=== PATIENT | female | born 1945 | race Caucasian/White ===

== ENCOUNTER 2017-04-10 15:00 | Inpatient (IN) | payer MEDICARE ==
[2017-04-22] MEDS ORDERED: MECLIZINE 25 MG TABLET PO ONE (06:00)
[2017-04-22] MEDS ORDERED: FAMOTIDINE 20MG TABLET PO ONE (06:00)
[2017-04-22] MEDS ORDERED: CELECOXIB 100 MG CAPSULE PO ONE (06:00)
[2017-04-22] MEDS ORDERED: METOCLOPRAMIDE 10 MG TABLET PO ONE (06:00)
[2017-04-22] MEDS ORDERED: VANCOMYCIN HCL 1,000 MG in 0.9 % SODIUM CHLORIDE 250ML 250 ML IVPB ONE (06:00)
[2017-04-22] MEDS ORDERED: CEFAZOLIN 2 Gram 2 GM/50 ML BAG IVPB ONE (06:00)
[2017-04-22 07:50] LABS: ABO GROUP A; RH TYPE POSITIVE
[2017-04-22 07:52] LABS: ANTIBODY SCREEN NEGATIVE (NEGATIVE)
[2017-04-22] MEDS ORDERED: 0.9 % SODIUM CHLORIDE 10 ML VIAL IVP ONE (09:00)
[2017-04-22] MEDS ORDERED: TRANEXAMIC ACID 1,000 MG/10 ML ML IV ONE ×2 (09:00→12:45)
[2017-04-22] MEDS ORDERED: ZOLPIDEM TARTRATE 5 MG TABLET PO PRN (11:14)
[2017-04-22] MEDS ORDERED: BISACODYL 10 MG SUPP RC PRN (11:14)
[2017-04-22] MEDS ORDERED: HYDROMORPHONE HCL 1MG/ML **SYRINGE IM PRN (11:14)
[2017-04-22] MEDS ORDERED: ONDANSETRON HCL IV 4 MG/2 ML VIAL IVP PRN (11:14)
[2017-04-22] MEDS ORDERED: HYDROCODONE/APAP 10/325 TABLET PO PRN ×2 (11:14)
[2017-04-22] MEDS ORDERED: TRAMADOL HCL 50 MG TABLET PO PRN (11:14)
[2017-04-22] MEDS ORDERED: NALOXONE 0.4 MG/1 ML VIAL IVP PRN (11:14)
[2017-04-22] MEDS ORDERED: AL HYDROX/MAG HYDROX 30ML UD PO PRN (11:14)
[2017-04-22] MEDS ORDERED: ACETAMINOPHEN W/ CODEINE 300MG/60MG TABLET PO PRN ×2 (11:14)
[2017-04-22] MEDS ORDERED: DIPHENHYDRAMINE HCL 25 MG CAPSULE PO PRN (11:14)
[2017-04-22] MEDS ORDERED: ACETAMINOPHEN 325 MG TAB PO PRN (11:14)
[2017-04-22] MEDS ORDERED: HYDROMORPHONE HCL 2 MG/ML VIAL IM PRN (11:14)
[2017-04-22] MEDS ORDERED: MAGNESIUM HYDROXIDE 30 ML UDC PO PRN (11:14)
[2017-04-22] MEDS ORDERED: KETOROLAC 30 MG/ML VIAL IVP PRN ×2 (11:14)
[2017-04-22] MEDS: POTASSIUM CHLORIDE/D5-0.9%NACL 20 MEQ/1,000 ML BAG IV SCH ×2 (11:58→21:07)
[2017-04-22] MEDS ORDERED: BUPIVACAINE 0.5% W/EPI MPF 30 ML VIAL IVP ONE (12:45)
[2017-04-22] MEDS ORDERED: FENTANYL PF 100MCG/2ML VIAL IV ONE (14:00)
[2017-04-22] MEDS ORDERED: HYDROMORPHONE HCL 2 MG/ML VIAL IV ONE (14:00)
[2017-04-22] MEDS ORDERED: *PACU ONLY* KETAMINE HCL 10 MG/ML (20ML) VIAL IV ONE (14:00)
[2017-04-22] MEDS ORDERED: PROPOFOL 10 MG/ML VIAL IV ONE (14:00)
[2017-04-22] MEDS ORDERED: MIDAZOLAM HCL 2MG/2ML VIAL IV ONE (14:00)
[2017-04-22] MEDS ORDERED: KETOROLAC 30 MG/ML VIAL IVP ONE (14:00)
[2017-04-22] MEDS: CEFAZOLIN 2 Gram 2 GM/50 ML BAG IVPB SCH (16:03)
--- NOTE | 2017-04-22 16:09 | Rehab Evaluation ---
Patient Information - Patient Information Diagnosis: R DJD Ordered Treatment: PT Evaluate and Treat Status: Initial Evaluation Surgery: Yes Date of Surgery: 04/22/17 Past Medical/Surgical Hx: PAST MEDICAL/SURGICAL HISTORY Past Surgical History rt breast lumpectomy with lymph nodes removed 25 yrs ago; colonoscopy; total thyroidectomy 2013. PMH - Respiratory Hx Respiratory Disorders Yes Hx Asthma Yes: as child Hx Sleep Apnea Yes Hx of CPAP Yes Hx of Oxygen Therapy No PMH - Cardiovascular Hx Cardiovascular Disorders Yes Hx Edema Yes: none now-but has some edema when knee " acting up" Hx Hypertension Yes: meds good control Hx Irregular Heartbeat Yes: A-fib for past 3-4 yrs Hx Vascular Disease Yes: "leaky valve"-heart Exercise Tolerance Good Comment: uses stationary bike Qd PMH - Neuro Hx Neurological Disorders No PMH - GI Hx Gastrointestinal Disorders Yes Hx Weight Loss/Weight Gain Yes: 15-20# over last 4 yrs PMH - Hx Genitourinary Disorders No PMH - Endocrine Hx Endocrine Disorders Yes Hx Thyroid Disease Yes: removed thyroid PMH - Musculoskeletal Hx Musculoskeletal Disorders Yes Hx Arthritis Yes: bilat knees PMH - Psych Hx Psychiatric Problems No PMH - Hematology/Oncology Hx Hematology/Oncology Yes Disorders Hx Cancer Yes: rt breast only Hx Chemotherapy Yes Hx Radiation Therapy Yes Comment: on blood thinner for A-FIB Premorbid Status: Detail (The patient was ambulatory without device.) Social History: Detail (The patient lives in a one story home with spouse with 5 steps and 2 railings. The patient has a tub/shower combination with a tub seat and a hand held shower and a regular toilet seat. No grab bars are present in the bathroom. The patient reports the laundry is in the basement but her will be assisting with laundry. The patient was completing all houlsehold tasks independently. The patient has a walker with wheels and a tub bench.) Precautions: [place], Other (WBAT on the R LE.) - Time With Patient Total Time Spent With Patient (Min): 30 Treatment Procedures: Detail (PT Initial Evaluation and gait training.) Subjective Information - Subjective Information Per Patient (The patient had no pain complaints.) Objective Data - Mental Status Patient Orientation: Oriented x3 - Visual Perception Appears within normal limits for therapeutic activities - ROM Not within normal limits (The patient's L LE AROM was WNL. The patient's R hip and ankle AROM was WNL. The patient's knee AROM was deferred secondary to status post surgery.) - Strength/Tone Not within normal limits (The patient's UE strength was generally 4+ to 5/5. The patient's L LE strength was generally 4+/5. The patient's R LE was not tested secondary status post surgery . Patient's R LE strength was functional ie : the patient was able to acheive a SLR.) - Bed Mobility Independent (The patient was independent with supine to and from sit transfer anc scooting up in bed.) - Transfers Independent (The patient was independent with sit to and from stand transfer.) - Balance Balance Sitting: Good Balance Standing: Good - Gait Detail (The patient ambulated with a wheeled walker supervision for safety only WBAT on the R LE a distance of 22 feet x 1.) Therapy Assessment - Therapy Assessment Detail (The patient was independent with bed mobility ,transfers and ambulated with supervision for safety only. Feel the patient will progress well with mobility.) Problem List - Problem List Physical Therapy Problem List: Detail (1) Decreased R knee ROM and R LE Strength following surgery 2) Limited ambulation distance and nonambulatory on stairs.) Goals - Goals Physical Therapy Goals: 1) The patient will be independent with ambulation with wheeled walker community distances on levels and stairs. 2)The patient will be independent with HEP. 3) The patient will be independent with all transfers. Prognosis - Prognosis Good Plan - Plan Physical Therapy Plan: PT 1 to 2 times a day until inpatient PT goals have been met.
[2017-04-22] MEDS: CARVEDILOL 25 MG PO SCH (16:36)
[2017-04-22] MEDS: DOCUSATE SODIUM 100 MG CAPSULE PO SCH (21:06)
[2017-04-22] MEDS ORDERED: PATIENT OWN MED: PRAVASTATIN 40 MG PO SCH (22:00)
[2017-04-23] MEDS: CEFAZOLIN 2 Gram 2 GM/50 ML BAG IVPB SCH ×2 (01:41→12:06)
[2017-04-23 06:40] LABS: HEMATOCRIT 36.8 % (35.0-47.0); HEMOGLOBIN 12.2 gm/dl (11.6-16.0)
[2017-04-23 06:52] LABS: ANION GAP 3.7 (7-16); BLOOD UREA NITROGEN 11 mg/dL (7-17); CARBON DIOXIDE 25.3 mmol/L (22-30); CREATININE 0.8 mg/dL (0.52-1.04); EST GLOMERULAR FILTRATION RATE > 60 ml/min; GLUCOSE,RANDOM 139 mg/dL (70-110)
[2017-04-23] MEDS ORDERED: LEVOTHYROXINE 112 MCG PO SCH (07:00)
[2017-04-23] MEDS: POTASSIUM CHLORIDE/D5-0.9%NACL 20 MEQ/1,000 ML BAG IV SCH ×2 (07:39→12:06)
[2017-04-23] MEDS: CARVEDILOL 25 MG PO SCH (08:10)
[2017-04-23] MEDS: PATIENT OWN MED: LISINOPRIL 10 MG PO SCH (08:11)
[2017-04-23] MEDS ORDERED: FERROUS SULFATE 325 MG TAB PO SCH (10:00)
--- NOTE | 2017-04-23 10:11 | Physical Therapy Tx Note ---
Physical Therapy Tx Note - Treatment Note Tolerated: Good Total Time Spent With Patient: 40 Physical Therapy Tx Note: Detail (Pt is Independent with HEP ,BED MOBILITY , TRANSFERS, AMBULATION LEVEL SURFACES AND STAIRS. ALL GOALS MET. Pt IS READY FOR D/C.) Physical Therapy Problem List: Detail (1) Decreased R knee ROM and R LE Strength following surgery 2) Limited ambulation distance and nonambulatory on stairs.) Physical Therapy Goals: 1) The patient will be independent with ambulation with wheeled walker community distances on levels and stairs. 2)The patient will be independent with HEP. 3) The patient will be independent with all transfers. Prognosis: Good (All goals met.) Physical Therapy Plan: PT 1 to 2 times a day until inpatient PT goals have been met.
[2017-04-23] MEDS: DOCUSATE SODIUM 100 MG CAPSULE PO SCH (11:05)
--- NOTE | 2017-04-23 11:12 | Rehab Evaluation ---
Patient Information - Patient Information Diagnosis: R total knee arthroplasty Ordered Treatment: OT Evaluate and Treat Status: Initial Evaluation Surgery: Yes (Right TKA) Date of Surgery: 04/22/17 Past Medical/Surgical Hx: PAST MEDICAL/SURGICAL HISTORY Past Surgical History rt breast lumpectomy with lymph nodes removed 25 yrs ago; colonoscopy; total thyroidectomy 2013. PMH - Respiratory Hx Respiratory Disorders Yes Hx Asthma Yes: as child Hx Sleep Apnea Yes Hx of CPAP Yes Hx of Oxygen Therapy No PMH - Cardiovascular Hx Cardiovascular Disorders Yes Hx Edema Yes: none now-but has some edema when knee " acting up" Hx Hypertension Yes: meds good control Hx Irregular Heartbeat Yes: A-fib for past 3-4 yrs Hx Vascular Disease Yes: "leaky valve"-heart Exercise Tolerance Good Comment: uses stationary bike Qd PMH - Neuro Hx Neurological Disorders No PMH - GI Hx Gastrointestinal Disorders Yes Hx Weight Loss/Weight Gain Yes: 15-20# over last 4 yrs PMH - Hx Genitourinary Disorders No PMH - Endocrine Hx Endocrine Disorders Yes Hx Thyroid Disease Yes: removed thyroid PMH - Musculoskeletal Hx Musculoskeletal Disorders Yes Hx Arthritis Yes: bilat knees PMH - Psych Hx Psychiatric Problems No PMH - Hematology/Oncology Hx Hematology/Oncology Yes Disorders Hx Cancer Yes: rt breast only Hx Chemotherapy Yes Hx Radiation Therapy Yes Comment: on blood thinner for A-FIB Premorbid Status: Detail (The patient lives with spouse in a 1 story house with 5 steps and handrailing at the entrance. She has a tub/shower combination with a bench and hand held shower as well as a standard height toilet, no grab bars. She was Ind with all self cares, meal prep, laundry, home mgmt and gardening. She has a 2 wheeled walker and a shower bench. The patient was ambulatory without device.) Social History: Detail (Pt has a supportive spouse.) Precautions: [place], Other (WBAT on the R LE.) - Time With Patient Total Time Spent With Patient (Min): 35 Treatment Procedures: Detail (OT eval low complexity) Subjective Information - Subjective Information Per Patient Objective Data - Pain Pain Present: Yes (2-3/10 right knee pain) - Mental Status Patient Orientation: Oriented x3 - Visual Perception Appears within normal limits for therapeutic activities - ROM Within normal limits (Raudel UE AROM WNL) - Strength/Tone Within normal limits (Raudel UE strength WNL) - Coordination Appears within normal limits for therapeutic activities - Bed Mobility Independent (Ind with supine to sit.) - Transfers Independent (Ind with sit to stand from EOB.) - Balance Balance Sitting: Good Balance Standing: Good - Sensation Intact - Gait Detail (Pt able to amb in room with 2 wheeled walker Indly.) - ADL's/IADL's Detail (Reviewed modified dressing techniques and shower safety. Pt able to demonstrate Ind with doffing gown and slippers and donning bra, shirt, shorts and slip on shoes using modified dressing technique.) Therapy Assessment - Therapy Assessment Detail (Pt is safe and Ind with LE dressing using modified dressing technique.) Problem List - Problem List Physical Therapy Problem List: Detail (1) Decreased R knee ROM and R LE Strength following surgery 2) Limited ambulation distance and nonambulatory on stairs.) Occupational Therapy Problem List: Detail (No current OT problems identified.) Goals - Goals Physical Therapy Goals: 1) The patient will be independent with ambulation with wheeled walker community distances on levels and stairs. 2)The patient will be independent with HEP. 3) The patient will be independent with all transfers. Occupational Therapy Goals: No current OT goals identified. Prognosis - Prognosis Good Plan - Plan Physical Therapy Plan: PT 1 to 2 times a day until inpatient PT goals have been met. Occupational Therapy Plan: No further IP OT recommended. Pt may benefit from home OT to assess IADLs and tub transfer at home. Discharge from IP OT.
[2017-04-23] MEDS ORDERED: RIVAROXABAN 15 MG PO SCH (17:30)
--- NOTE | 2017-04-30 10:10 | Discharge Summary ---
DATE OF SERVICE: 04/23/2017. DATE OF ADMISSION: 04/22/2017. DATE OF DISCHARGE: 04/23/2017. FINAL DIAGNOSIS/PRIMARY DIAGNOSIS: End-stage arthrosis of the right knee. SECONDARY DIAGNOSES: 1. Valvular heart disease, stable. 2. Hypothyroidism, stable. 3. Hypertension, stable. OPERATIONS AND PROCEDURES: Cemented right total knee arthroplasty. HISTORY OF PRESENT ILLNESS: The patient is a delightful 71-year-old female who presents with end-stage arthrosis of her right knee. She is admitted after right total knee arthroplasty. Postoperatively she did extremely well. HOSPITAL COURSE: Her hospital course was unremarkable. The plan is discharge her home in care of her family. She will be given Tylenol No. 4 for pain. She takes Xarelto chronically for valvular heart disease, so she will continue with that. That will cover her for DVT prophylaxis. She will follow up in my office in 4 weeks. Her sutures will be removed by the visiting nurse in 2 weeks. Her discharge hemoglobin is normal at 12.2. She did not require transfusion. CC: MD NKECHI Thompson
--- NOTE | 2017-04-30 11:10 | Operative Note ---
DATE OF SURGERY: 04/22/2017 PREOPERATIVE DIAGNOSIS: End-stage arthrosis of the right knee. POSTOPERATIVE DIAGNOSIS: End-stage arthrosis of the right knee. OPERATION: Cemented right total knee arthroplasty using Desai and Nephew Daily II components, a size 4 Oxinium femur, a size 5 stem tibia baseplate, a 9 mm lip highly crosslinked tibial insert, and a 35 mm all plastic patella. Staff Surgeon: Balta Bradley MD Anesthesia: Spinal. PREPARATION: Chloraprep. INDIVIDUAL CONSIDERATIONS: None. PROCEDURE: The patient was taken to the operating room, placed supine on the operating room table. She had a successful induction of spinal anesthetic. Her right lower extremity was prepped and draped in the usual fashion. Limb was elevated and tourniquet was inflated at 250 mmHg. The patient had midline approach to the knee. Sharp dissection was carried down through skin and subcutaneous tissues. Small veins were coagulated with a Bovie. A medial arthrotomy was performed. Patella was everted, knee was flexed. She had exposed bone throughout but primary at patellofemoral compartments. Fat pads were resected, ACL was sacrificed, provisional anterior meniscectomies were performed and the capsule was released from the medial proximal tibia. The initial femoral power tool repairer hole was then made freehand. The intramedullary femoral cutting jig was placed. It was cut in 7.0 degrees of valgus and adjusted for rotation, secured with pins for a 10 mm resection. The initial transverse cut was then made. Skin guide was placed in the anterior and posterior power tool repairer holes. It was found that a size 4 would be appropriate. The anterior and posterior cuts followed by chamfer cuts were made. Osteophytes removed. A size 4 trial was placed and found to fit well. The tibia was brought forward. Remainder of the meniscal remnants removed with a Bovie. The extraarticular tibia cutting jig was placed. It was cut in neutral with a 3-degree AP slope. Care was taken to adjust for rotation and flex using the extraarticular alignment guide and bony landmarks. It was set for a 9 mm resection cued off the high medial side and secured with pins. In cutting the tibia, care was taken to preserve the PCl insertion on the tibia. The medial osteophytes were removed and it was found that a size 3 baseplate would fit appropriately. It was adjusted for rotation and secured with pins. With a 9 mm trial and femoral trial, there was excellent motion and stability. Ligamentous balance, rotation, and alignment were thought to be normal. The femoral power tool repairer holes were impacted and the tri-flange tibial stamp was impacted and these trial components were removed. The patient had reasonably thick patella roughly 9 mm of bone removed using the oscillating saw. Three power tool repairer holes were drilled for a 35 mm patella. Tourniquet let down briefly to get bleeders posteriorly and then was placed back up again. The joint was then thoroughly irrigated out with pulsatile Betadine and saline to remove any visual or palpable debris. Bony surfaces were then dried. A size 3 stem tibia baseplate was cemented into place followed by impaction of a 9 mm lip highly cross-linked tibial insert followed by cementing of the size 4 Oxinium femur. Implant surfaces were compressed. Excess cement was removed. After the cement had set, there was excellent motion and stability. Ligamentous, balance, rotation, alignment, and patellofemoral tracking were normal. No lateral release was required. Again thorough irrigation to remove any visual or palpable debris. Tourniquet was let down and hemostasis was obtained with a Bovie. The periosteum in both the tibia and femur was then infiltrated with 0.5% Marcaine with epinephrine along with the skin and subcutaneous tissue. The capsule was closed with running #2 quill, subcu was closed with running 0 quill, skin was closed with judi, and the Aquacel type dressing was applied. Prior to this, though, I did inject the knee was 1 g of tranexamic acid mixed with 40 mL of saline through a sterile 18 gauge needle. The patient tolerated the procedure well. Needle and sponge counts were correct. Estimated blood loss was minimal and she was taken back to recovery in good condition. There were no complications. CC: Dr. Krystin ARBOLEDA
== END 2017-04-23 12:45 | disposition home or self-care (01) | DRG 470 ==
LOC: MEDSURG 04-22 06:37
PROVIDERS: ADMIT Orthopaedic Surgery; ATTEND Orthopaedic Surgery
PROC: 0SRC0J9 Replacement of Right Knee Joint with Synthetic Substitute, Cemented, Open Approach (ICD-10-PCS; principal; 2017-04-22 09:00)
DX: M17.11 Unilateral primary osteoarthritis, right knee (principal); I48.2 Chronic atrial fibrillation; Z79.01 Long term (current) use of anticoagulants; E03.9 Hypothyroidism, unspecified; E78.00 Pure hypercholesterolemia, unspecified; I10 Essential (primary) hypertension
CPT/HCPCS: 80048; 85014; 85018; 86850; 86900; 86901; 97116; 97165; 97535; J1885; J3480; J7050